=== PATIENT | female | born 1950 | race Caucasian/White ===

== ENCOUNTER → 2016-11-16 | Outpatient (CLI) | payer OTHER ==
--- NOTE | 2016-11-16 20:02 | CONS ---
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 HISTORY OF PRESENT ILLNESS/SLEEP-WAKE EVALUATION: SLEEP SCHEDULE: Patient's usual sleep schedule is from 10:00 p.m. to 5:00 a.m. on weekdays and from around 11:00 p.m. to 6:00 a.m. on weekends. FALLING ASLEEP: No problem with falling asleep. No TV in bedroom. DURING SLEEP: She usually sleeps on the side or different positions by herself. No information about snoring. She wakes up from sleep once with nocturia. DURING THE DAY/WAKE STATE: She does not complain of any tiredness or sleepiness during the day. [place] Sleepiness Scale is 3, but she may take one nap during the day at 11:00 a.m. No history of hypnagogic hallucinations, sleep paralysis or cataplexy. Patient by herself denied snoring. PAST MEDICAL HISTORY: Hypertension, coronary artery disease, hypothyroidism, diabetes mellitus, allergies, history of chronic obstructive pulmonary disease. PAST SURGICAL HISTORY: Stent insertion to coronary artery, polypectomy from colon in 2015. MEDICATIONS: Singulair, metformin, levothyroxine, chlorzoxazone, clonidine, losartan, clopidogrel, atorvastatin, [place]-3 supplement, metoprolol, hydrochlorothiazide, glimepiride. SOCIAL HISTORY: Positive for social smoking several cigarettes a week. Alcohol consumption none at the present time. REVIEW OF SYSTEMS: Awakenings from sleep with nocturia once for many years. No fevers. No double vision. No recent chest pain. No shortness of breath. No abdominal pain. No bleeding episodes. No blood in urine. No seizure episodes. FAMILY HISTORY: Hypertension, heart problems, hyperlipidemia, arthritis, bronchitis, acid reflux, diabetes, thyroid problems. PHYSICAL EXAMINATION: GENERAL: During physical exam, a 66-year-old lady without distress. VITAL SIGNS: BP 168/96, HR 85, RR 18, height 60 inches. Weight 192.8. BMI 37.4. Neck 14-3/4 inches in circumference. Temperature 97.4. Oxygen saturation at room air 95%. HEENT: [place], EOMI. Evaluation of oropharynx showed extremely low position of soft palate, restriction of nasal breathing bilaterally. NECK: Supple. No JVD. Thyroid is not palpable. LUNGS: Clear to percussion and to auscultation. Good air exchange. No wheezing or rhonchi. HEART: S1, S2 regular. No murmurs, gallops or rubs. ABDOMEN: Obese. Soft and nontender. Bowel sounds are present. No organomegaly appreciated. EXTREMITIES: No clubbing or cyanosis. ADMINISTRATIVE CLERK: Awake, alert, and oriented x3. Cranial nerves 2 to 7 intact. There is no fasciculation or atrophy noted. No focal deficits observed. IMPRESSION: 1. Extremely low position of soft palate, restriction of nasal breathing, awakenings from sleep with nocturia, obesity, possible obstructive sleep apnea-hypopnea syndrome. 2. Obesity, body mass index of 37.4. 3. Hypertension. 4. Coronary artery disease, status post stent insertion. 5. Hypothyroidism. 6. Hyperlipidemia. 7. Allergies. 8. Status post polypectomy from colon in 2014. 9. History of chronic obstructive pulmonary disease. PLAN: 1. Polysomnography for evaluation of patient's breathing during sleep. 2. CPAP/BiPAP titration if sleep study confirms obstructive sleep apnea-hypopnea syndrome. 3. Preferable position during sleep on the side. 4. No driving if patient feels any sleepiness. Patient is aware of civil and criminal liability for unsafe driving. 5. I will see patient for follow-up visit to explain results of the testing and following plan. Thank you very much for referring this patient for consultation. Sincerely, Hubert Jaime MD, PhD, FAASM. Diplomat of [place] [employer], Sleep Medicine Board by [place] [employer] [place] [employer] Auditor Appraiser of [facility] [place]
== END | disposition home or self-care (01) ==
LOC: SLEEP 16:41
PROVIDERS: ATTEND Internal Medicine
DX: G47.33 Obstructive sleep apnea (adult) (pediatric) (principal); E66.9 Obesity, unspecified; Z68.37 Body mass index [BMI] 37.0-37.9, adult; I10 Essential (primary) hypertension; I25.10 Atherosclerotic heart disease of native coronary artery without angina pectoris; E03.9 Hypothyroidism, unspecified; E78.5 Hyperlipidemia, unspecified; Z91.09 Other allergy status, other than to drugs and biological substances; Z98.890 Other specified postprocedural states; J44.9 Chronic obstructive pulmonary disease, unspecified
CPT/HCPCS: 99211

== ENCOUNTER → 2016-12-27 | Outpatient (CLI) | payer OTHER ==
--- NOTE | 2016-12-27 14:21 | PN ---
DATE OF CONSULTATION: 12/27/2016 A 66-year-old lady who has been followed in the Sleep Center to discuss results of diagnostic sleep study, which was done as a polysomnogram. I discussed results of diagnostic sleep study with the patient in detail. Total apnea-hypopnea index during the test is 3.1, which is in normal range. Apnea-hypopnea in REM sleep increased to 24.4. Patient usually sleeps short amount of hours at night and then take additional 1 or 2 hours of sleep during the day. With this regimen, she referred no sleepiness. [place] Sleepiness Scale today is 4. 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 Patient referred that she does not feel any sleepiness during the day. MEDICATIONS: Singulair, metformin, levothyroxine, chlorzoxazone, clonidine, losartan, clopidogrel, atorvastatin, metoprolol, hydrochlorothiazide, glimepiride. The patient did not take her medications today. During physical exam, patient in no distress. BP 173/85, HR 84, RR 16. Weight 197.0 to 197.7, oxygen saturation at room air 98%. Oropharynx low position of soft palate. ABDOMEN: Obese. Neck: Supple. No JVD. Thyroid is not palpable. LUNGS: Clear to percussion and to auscultation. Good air exchange. No wheezing or rhonchi. HEART: S1, S2 regular. No murmurs, gallops, or rubs. EXTREMITIES: No clubbing or cyanosis. EQUAL OPPORTUNITY OFFICER: Awake, alert, and oriented x3. Cranial nerves 2 to 7 intact. There is no fasciculation or atrophy noted. No focal deficits observed. IMPRESSION: 1. Snoring has been documented during the sleep study. 2. Total apnea-hypopnea index 3.1, which is in normal range following Medicare guidelines. 3. Patient does not refer any excessive daytime sleepiness during the day. [place] Sleepiness Scale is 4. 4. Hypertension. 5. Coronary artery disease. 6. Hypothyroidism. 7. Hyperlipidemia. 8. Allergies. 9. Status post polyps removed from the colon. 10. History of chronic obstructive pulmonary disease. PLAN: 1. Sleep hygiene with regular time in bed for at least 8 hours. 2. Losing weight. 3. Preferable position during sleep on the side. 4. No driving if feeling any sleepiness. 5. Patient is aware about civil and criminal liability for unsafe driving after promised to follow recommendations. 6. Losing weight. 7. Followup visit in 6 months. Thank you very much for allowing me to participate in the management of your patient. Sincerely, Hubert Jaime MD, PhD, FAASM. Diplomat of [place] [employer], Sleep Medicine Board by [place] [employer] [place] [employer] Garage Mechanic of [facility] [place]
== END | disposition home or self-care (01) ==
LOC: SLEEP 09:48
PROVIDERS: ATTEND Internal Medicine
DX: R06.83 Snoring (principal); I10 Essential (primary) hypertension; J44.9 Chronic obstructive pulmonary disease, unspecified; E03.9 Hypothyroidism, unspecified; E78.5 Hyperlipidemia, unspecified; I25.10 Atherosclerotic heart disease of native coronary artery without angina pectoris; Z79.899 Other long term (current) drug therapy

== ENCOUNTER → 2017-01-26 | Outpatient (CLI) | payer OTHER ==
--- NOTE | 2017-01-26 14:39 | US ---
EXAMINATION TYPE: US carotid duplex BILAT DATE OF EXAM: 01/26/2017 1:55 PM COMPARISON: NONE CLINICAL HISTORY: 66-year-old female I25.10 Atherosclerotic heart disease. HTN TECHNIQUE: Carotid duplex ultrasound examination. Diverticular criteria was utilized. FINDINGS: There is moderate atherosclerotic change seen at the left greater than right carotid bifurcations and also within the left common carotid artery. EXAM MEASUREMENTS: RIGHT: Peak Systolic Velocity (PSV) cm/sec ----- Right CCA: 87.5 ----- Right ICA: 121.1 ----- Right ECA: 217.5 ICA/CCA ratio: 1.4 RIGHT: End Diastole cm/sec ----- Right CCA: 30.3 ----- Right ICA: 44.8 ----- Right ECA: 20.0 LEFT: Peak Systolic Velocity (PSV) cm/sec ----- Left CCA: 111.7 ----- Left ICA: 117.3 ----- Left ECA: 101.6 ICA/CCA ratio: 1.1 LEFT: End Diastole cm/sec ----- Left CCA: 41.3 ----- Left ICA: 36.5 ----- Left ECA: 0.0 VERTEBRALS (direction of flow): Right Vertebral: Antegrade Left Vertebral: Antegrade CASKET ASSEMBLER NOTES: Bilateral thickened wall. Elevated right ECA. No significant stenosis seen. Evette que seen in bilateral bulbs and in left CCA. IMPRESSION: Moderate atherosclerotic change, left greater than right. No hemodynamically significant stenosis xavier reciated in either internal carotid artery. Criteria for Assigning % of Stenosis / Diameter reduction (Estimation based on the indirect measurements of the internal carotid artery velocities (ICA PSV). 1. Normal (no stenosis)=ICA PSV < 125 cm/s: ratio < 2.0: ICA EDV<40 cm/s. 2. Less than 50% stenosis=ICA PSV < 125 cm/s: ratio < 2.0: ICA EDV<40 cm/s. 3. 50 to 69% stenosis=ICA PSV of 125 to 230 cm/s: ration 2.0 ? 4.0: ICA EDV 40-100 cm/s. 4. Greater than 70% stenosis to near occlusion= ICA PSV > 230 cm/s: ratio > 4.0: ICA EDV > 100 cm/s. 5. Near occlusion= ICA PSV velocities may be low or undetectable: variable ratio and ICA EDV. 6. Total occlusion=unable to detect flow.
== END | disposition home or self-care (01) ==
LOC: RADUSWWP 13:14 → MERGE 02-01 18:00
PROVIDERS: ATTEND Family Medicine
DX: I25.10 Atherosclerotic heart disease of native coronary artery without angina pectoris (principal)
CPT/HCPCS: 93880

== ENCOUNTER → 2017-06-28 | Outpatient (CLI) | payer OTHER ==
--- NOTE | 2017-06-28 11:42 | PN ---
PROGRESS NOTE DATE OF SERVICE: 06/28/2017 A 66-year-old lady has been followed in the Sleep Center to discuss results of polysomnogram. I discussed results of polysomnogram with the patient in details. Sleep study did not show significant abnormalities of respiration following today's criteria. Apnea-hypopnea index 3.1, lowest oxygen level 87.2, and oxygen was below normal only for 0.3 minutes. Apnea-hypopnea index in REM sleep increased to 24, but it is not considered to be criteria by today's recommendations. No significant periodic limb movements have been documented. Snoring medium to loud has been documented during the sleep study. During the summer, patient sleeps from midnight until 8 am. 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 She has up at 5 am and subsequently it may not be enough for her. In that case, she may take additional nap during the day, but she does not feel any sleepiness. Her [place] Sleepiness Scale is 4. MEDICATIONS: Singulair, metformin, levothyroxine, clonidine, losartan, clopidogrel, atorvastatin, metoprolol, hydrochlorothiazide, glimepiride. PHYSICAL EXAM: A 66-year-old lady without distress. BP 142/70, HR 78, RR 16, height 5, 0, weight 170, BMI 33.2. Patient lost about 22 pounds since the time when we did the sleep study. Temperature 97.5, oxygen saturation on room air 96%. OROPHARYNX: Low position of soft palate. HEART: Short systolic murmur on aorta. ABDOMEN: Slightly obese. Neck Supple, no JVD. Thyroid is not palpable. LUNGS Clear to percussion and to auscultation. Good air exchange. No wheezing or rhonchi. EXTREMITIES No clubbing or cyanosis. PLANT OPERATIONS WORKER Awake, alert, and oriented X3. Cranial nerves 2 to 7 intact. There is no fasciculation or atrophy. noted. No focal deficits observed. IMPRESSION: 1. Snoring during the sleep test. 2. No significant respiratory abnormalities during the sleep study. 3. Patient lost about 22 pounds since previous sleep study, which showed positively affecting her breathing during the sleep and may decrease her snoring. 4. Mild obesity. 5. Hypertension. 6. Coronary artery disease, status post stent insertion. 7. Hypothyroidism. 8. Hyperlipidemia. 9. Allergies. 10.Status post polypectomy from colon in 2014. 11.History of chronic obstructive pulmonary disease. PLAN: 1. Continue losing weight. 2. Sleep hygiene with regular time in bed for 7-1/2 to 8 hours. 3. No driving if feeling sleepiness. 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 Promise to follow recommendations. 4. The patient should try to go to bed early at the school time. To do that, she may consider to use melatonin at 7 pm which may move her sleep cycle to the early time. As much as possible bright light exposure in the morning. She could use light machine in the morning during the breakfast. 5. Followup visit in 6 months. Thank you very much for allowing me to participate in the management of your patient. Sincerely, Hubert Jaime MD, PhD, FAASM Diplomat of [place] [employer] Specialties [place] Board of Internal Medicine University Relations Recruiter of [facility] [place] MMODL / PAMELAN: [id number] /
== END ==
LOC: SLEEP 09:55
PROVIDERS: ATTEND Internal Medicine
DX: R06.83 Snoring (principal); E66.9 Obesity, unspecified; I10 Essential (primary) hypertension; I25.10 Atherosclerotic heart disease of native coronary artery without angina pectoris; E78.5 Hyperlipidemia, unspecified; E03.9 Hypothyroidism, unspecified; J44.9 Chronic obstructive pulmonary disease, unspecified; Z79.899 Other long term (current) drug therapy; Z79.84 Long term (current) use of oral hypoglycemic drugs

== ENCOUNTER → 2020-12-21 | Outpatient (CLI) | payer MEDICARE, OTHER ==
--- NOTE | 2020-12-27 10:45 | MM ---
Reason for exam: screening (asymptomatic). Last mammogram was performed 10 years and 9 months ago. History: Patient is postmenopausal and history of other cancer. Physical Findings: A clinical breast exam by your physician is recommended on an annual basis and results should be correlated with mammographic findings. MG 3D Screening Mammo W/Cad Bilateral CC and MLO view(s) were taken. Prior study comparison: March 11, 2010, bilateral digital screening mammogram. There are scattered fibroglandular densities. There is chronic nodularity bilaterally. No significant changes when compared with prior studies. ASSESSMENT: Benign, BI-RAD 2 RECOMMENDATION: Routine screening mammogram of both breasts in 1 year.
== END ==
LOC: RADMAMWWP 10:51
PROVIDERS: ATTEND Family Medicine
DX: Z12.31 Encounter for screening mammogram for malignant neoplasm of breast (principal); Z78.0 Asymptomatic menopausal state
CPT/HCPCS: 77063; 77067

== ENCOUNTER → 2022-12-30 | Outpatient (CLI) | payer MEDICARE, OTHER ==
[2022-12-30 16:32] LABS: Basophils # (A) 0.06 X 10*3/uL (0.00-0.10); Basophils % (A) 0.5 %; Eosinophils # (A) 0.17 X 10*3/uL (0.04-0.35); Eosinophils % (A) 1.4 %; HCT 37.3 % (37.2-46.3); HGB 11.6 g/dL (12.0-15.0); Immature Grans, Automated 0.3 %; Lymphocytes # (A) 2.27 X 10*3/uL (0.90-5.00); Lymphocytes % (A) 19.2 %; MCH 27.5 pg (27.0-32.0); MCHC 31.1 g/dL (32.0-37.0); MCV 88.4 fL (80.0-97.0); Monocytes # (A) 0.58 X 10*3/uL (0.20-1.00); Monocytes % (A) 4.9 %; NRBC Per 100 WBC 0 /100 WBCS (0.0-0.0); Neutrophils # (A) 8.72 X 10*3/uL (1.80-7.70); Neutrophils % (A) 73.7 %; Platelet Count 262 X 10*3/uL (140-440); RBC 4.22 X 10*6/uL (4.10-5.20); RDW 13.4 % (11.5-14.5); WBC 11.84 X 10*3/uL (4.50-10.00)
[2022-12-30 17:41] LABS: ALT 22 U/L (8-44); AST 20 U/L (13-35); African American GFR (CKD) 71.8 (60.0-200.0); Albumin 4.4 g/dL (3.8-4.9); Albumin/Globulin Ratio 1.44 (1.60-3.17); Alkaline Phosphatase 50 U/L (41-126); BUN/Creat Ratio 23.23 Ratio (12.00-20.00); Blood Urea Nitrogen 21.7 mg/dL (9.0-27.0); Calcium 9.4 mg/dL (8.7-10.3); Carbon Dioxide 25.1 mmol/L (20.0-27.5); Chloride 102 mmol/L (96-109); Chol/HDL Ratio 3.32 Ratio; Globulin 3.1 g/dL (1.6-3.3); Glucose 125 mg/dL (70-110); LDL Cholesterol,Calculated 45.9 mg/dL (0.0-131.0); Non-African American GFR(CKD) 61.9 (60.0-200.0); Potassium 4.3 mmol/L (3.5-5.5); Sodium 140 mmol/L (135-145); Total Protein 7.5 g/dL (6.2-8.2)
== END | disposition home or self-care (01) ==
LOC: LABWHC1 11:35
PROVIDERS: ATTEND Internal Medicine Interventional Cardiology
DX: E78.2 Mixed hyperlipidemia (principal)
CPT/HCPCS: 36415; 80053; 80061; 85025

== ENCOUNTER → 2022-12-30 | Outpatient (CLI) | payer MEDICARE, OTHER | END | disposition home or self-care (01) | LOC: LABPAT 11:32 | PROVIDERS: ATTEND Internal Medicine Interventional Cardiology | DX: Z53.9 Procedure and treatment not carried out, unspecified reason (principal) ==

== ENCOUNTER 2023-01-04 10:20 | Day surgery (SDC) | payer MEDICARE, OTHER ==
[~2023-01-04 10:20] MED LIST: ALPRAZolam 0.25 MG TAB PO PRN; ALPRAZolam 0.5 MG TAB PO PRN; ASPIRIN 325 MG TAB PO ONE; NITROGLYCERIN SL TABS 0.4 MG TAB SUBLINGUAL PRN
[2023-01-04] MEDS: SODIUM CHLORIDE 0.9% 1,000 ML in EMPTY BAG 1 BAG IV SCH ×2 (10:50→17:48)
[2023-01-04 11:03] LABS: Glucose,Whole Blood 152 mg/dL (70-110)
[2023-01-04 11:09] LABS: Basophils % (A) 0 %; Eosinophils # (A) 0.1 k/uL (0-0.7); Eosinophils % (A) 2 %; HCT 32.3 % (34.0-46.0); HGB 10.7 gm/dL (11.4-16.0); Lymphocytes # (A) 1.7 k/uL (1.0-4.8); Lymphocytes % (A) 20 %; MCH 28.7 pg (25.0-35.0); MCHC 33.1 g/dL (31.0-37.0); Mean Platelet Volume 7.1; Monocytes # (A) 0.4 k/uL (0-1.0); Monocytes % (A) 4 %; Neutrophils # (A) 6.3 k/uL (1.3-7.7); Neutrophils % (A) 73 %; Platelet Count 215 k/uL (150-450); RBC 3.73 m/uL (3.80-5.40); RDW 13.7 % (11.5-15.5); WBC 8.7 k/uL (3.8-10.6)
[2023-01-04 11:21] LABS: MCV 86.7 fL (80.0-100.0)
[2023-01-04] MEDS ORDERED: fentaNYL (PF) 50 MCG/ML 2 ML AMP ONE (11:51)
[2023-01-04] MEDS ORDERED: fentaNYL (PF) 50 MCG/ML 2 ML AMP IV ONE (12:25)
[2023-01-04] MEDS ORDERED: HEPARIN SODIUM 1,000 UN/ML (10ML VL) ONE (12:29)
[2023-01-04] MEDS ORDERED: LIDOCAINE 1% INJ 10MG/ML (5 ML VIAL-PF) SQ ONE (12:29)
[2023-01-04] MEDS ORDERED: VERAPAMIL 2.5 MG/ML 2 ML AMP INTRAARTER ONE (12:31)
[2023-01-04] MEDS ORDERED: HEPARIN SODIUM 1,000 UN/ML (10ML VL) IV ONE ×3 (12:32→12:51)
[2023-01-04] MEDS ORDERED: IOPAMIDOL-370 125ML BTL INJ ONE (13:14)
[2023-01-04] MEDS ORDERED: NITROGLYCERIN SL TABS 0.4 MG TAB SUBLINGUAL PRN ×2 (13:18→13:19)
[2023-01-04] MEDS ORDERED: ATROPINE SULFATE 0.1 MG/ML 10ML SYRINGE IV PRN (13:18)
[2023-01-04] MEDS ORDERED: ZOLPIDEM 5 MG TAB PO PRN (13:18)
[2023-01-04] MEDS ORDERED: RX INFO: IV CONTRAST WAS GIVEN 1 EACH MISC MISCELLANE PRN (13:18)
[2023-01-04] MEDS ORDERED: MAG HYDROX/AL HYDROX/SIMETH 30 ML CUP PO PRN (13:18)
--- NOTE | 2023-01-04 13:27 | P.CARDCATH ---
Date of Procedure: 01/04/23 Description of Procedure: Cardiac Catheterization: The patient is a 72-year-old female with a history of hypertension, hyperlipidemia, diabetes mellitus and prior PCI of her RCA was has been complaining of progressive dyspnea and had an abnormal MPI. Recommendations were made regarding cardiac catheterization, the risks and the complications were discussed with the patient who is in full understanding and agreement. Procedure Description: Patient was brought to salvage laborer in fasting semi-sedated state after receiving Fentanyl and Benadryl achieiving moderate conscious sedated state. Using Xylocaine Anesthesia and Seldinger technique, a 6-Swedish sheath was introduced in the right radial artery . Subsequently, selective coronary angiography was performed using a 5-Swedish 3.5 bend Coretta catheter. Multiple views of the coronary artery including hemiaxial views were obtained. The 5-Swedish pigtail catheter was used to cross the aortic valve and LVEDP was calculated. PCI: After removing the catheter a 6-Swedish EBU 3.75 guiding catheter was introduced and the system and after cannulating the left main a 0.014 BMW J-wire was positioned in the distal LAD subsequently an IVUS [place] Eye catheter was introduced and imaging were obtained, after removing the catheter 3.0 x 12 mm shockwave balloon was introduced and 3 treatment were done. After removing the balloon 3.0 x 23 mm Xience maine point was advanced and deployed at 16 gary, after removing the balloon repeat intravascular ultrasound was performed. And after removing the wire images were obtained and revealed stable successful stenting. Following that, catheter and sheath were removed. Hemostasis was obtained with deployment of TR band . There was no immediate complication. Patient was returned to room in stable condition. Of note, the patient received a total of 7500 units of intravenous heparin as well as intra-arterial verapamil. She was continued on clopidogrel. She had chest discomfort and EKG changes with the inflations. Her ACT was monitored. Findings: Fluoroscopy: Severe calcifications of all of her arteries was noted Left main: This is a large-size vessel, bifurcating into LAD and left circumflex, left main has no high-grade stenosis LAD: This is a large-size vessel, reaching to the apex with a wraparound the apex segment after the takeoff of the first diagonal branch there is an eccentric 95% stenosis, the rest of the vessel has no high-grade stenosis Left circumflex: This is a large nondominant vessel giving rise to a large obtuse marginal branch, the obtuse marginal branch has 10-20% plaque with no high-grade stenosis. RCA: This is a large dominant vessel, bifurcating into PDA and PLV, the stented proximal and mid RCA is patent with mild in-stent restenosis of 20% with no high-grade stenosis Left Ventriculogram: Not performed Hemodynamics: There was no gradient across the aortic valve , LVEDP was 16-20 mmHg Conclusion: 1. Severe diffuse calcification 2. Critical stenosis in the proximal LAD 3. Patent stents of the RCA with mild in-stent restenosis 4. Mild disease in the left circumflex 5. Successful stenting of the proximal LAD with reduction of stenosis from 95% to less than 5% with intravascular ultrasound imaging. Recommendations: The patient will continue on aspirin and clopidogrel for 6 months without any interruption in addition to aggressive coronary risks modifications. The findings and the recommendations were discussed with the patient and the family and they were in full understanding and agreement. Duration of sedation is 44 minutes.
[2023-01-04] MEDS ORDERED: SODIUM CHLORIDE 0.9% 1,000 ML in EMPTY BAG 1 BAG IV SCH (13:30)
[2023-01-04 16:42] LABS: Glucose,Whole Blood 145 mg/dL (70-110)
[2023-01-04] MEDS: PANTOPRAZOLE 40 MG TABLET PO SCH (17:47)
[2023-01-04] MEDS: GLIMEPIRIDE 4 MG TAB PO SCH (17:48)
[2023-01-04] MEDS ORDERED: MONTELUKAST 10 MG TAB PO SCH (21:00)
[2023-01-04] MEDS ORDERED: ATORVASTATIN 40 MG TAB PO SCH (21:00)
[2023-01-04] MEDS: cloNIDine HCL 0.1 MG TAB PO SCH (21:12)
[2023-01-04] MEDS: METOPROLOL TARTRATE 50 MG TAB PO SCH (21:13)
[2023-01-04] MEDS: CYCLOBENZAPRINE 5 MG TAB PO SCH (21:13)
[2023-01-04 21:57] LABS: Glucose,Whole Blood 148 mg/dL (70-110)
[2023-01-05 06:26] LABS: Glucose,Whole Blood 154 mg/dL (70-110)
[2023-01-05] MEDS ORDERED: LEVOTHYROXINE 137 MCG TAB PO SCH (06:30)
[2023-01-05] MEDS: SODIUM CHLORIDE 0.9% 1,000 ML in EMPTY BAG 1 BAG IV SCH (06:31)
[2023-01-05] MEDS: GLIMEPIRIDE 4 MG TAB PO SCH (06:33)
[2023-01-05] MEDS: PANTOPRAZOLE 40 MG TABLET PO SCH (06:33)
--- NOTE | 2023-01-05 07:13 | P.PN ---
Subjective Progress Note Date: 01/05/23 PROGRESS NOTE The patient is a 72-year-old female with known history of hypertension, hyperlipidemia, diabetes mellitus who has been complaining of chest discomfort and had an abnormal MPI, underwent cardiac catheterization and was found to have severe obstructive disease involving the calcified LAD. She underwent stenting of that vessel. She is doing well this morning, ambulating without difficulty. She continues to be in sinus mechanism. Medications: Aspirin, Plavix 75 mg daily, Lipitor 40 mg daily, Protonix 40 mg daily, Singulair 10 mg daily, losartan 100 mg daily, Synthroid, glyburide, clonidine, metoprolol 50 mg twice a day, Zetia 10 mg daily, citalopram,Trulicity PHYSICAL EXAMINATION: Blood [id number]/70 heart rate 78 LUNGS: [Clear to auscultation] HEART: [Regular rate and rhythm, S1, S2. No S3. systolic ejection murmur] ABDOMEN: [Soft, nontender, no organomegaly] EXTREMETIES: [No edema, Right radial pulse intact ] LAB: EKG: Sinus mechanism with no acute ST segment changes. IMPRESSION: 1. Status post stenting of the LAD 2. Patent stent in the RCA 3. Hypertension 4. Diabetes PLAN: 1. Continue present therapy 2. Discharged home today 3. Follow-up as an outpatient Objective - Vital Signs Vital signs: Vital Signs Temp 97.8 F 01/05/23 02:05 Pulse 78 01/05/23 02:05 Resp 16 01/05/23 02:05 BP 135/77 01/05/23 02:05 Pulse Ox 98 01/05/23 02:05 FiO2 Intake & Output 01/04/23 01/05/23 01/05/23 18:59 06:59 18:59 Intake Total 100 Balance 100 Weight 79.9 kg Intake: IV 100 Other: # Voids 2 - Labs CBC & Chem 7: 01/04/23 10:49 Labs: Abnormal Lab Results - Last 24 Hours (Table) 01/04/23 01/04/23 01/04/23 Range/Units 10:49 10:55 16:41 RBC 3.73 L (3.80-5.40) m/uL Hgb 10.7 L (11.4-16.0) gm/dL Hct 32.3 L (34.0-46.0) % POC Glucose (mg/dL) 152 H 145 H (70-110) mg/dL 01/04/23 01/05/23 Range/Units 21:55 06:24 RBC (3.80-5.40) m/uL Hgb (11.4-16.0) gm/dL Hct (34.0-46.0) % POC Glucose (mg/dL) 148 H 154 H (70-110) mg/dL
[2023-01-05 07:20] VITALS: BP 125/73; PULSE 72; RESP 18; TEMP 97.5
[2023-01-05 08:16] LABS: African American GFR (CKD) 86 (>60 ml/min/1.73 sqM); Anion Gap 7 mmol/L; Blood Urea Nitrogen 17 mg/dL (7-17); Calcium 8.6 mg/dL (8.4-10.2); Carbon Dioxide 27 mmol/L (22-30); Chloride 103 mmol/L (98-107); Glucose 165 mg/dL (74-99); Non-African American GFR(CKD) 74 (>60 ml/min/1.73 sqM); Potassium 4.2 mmol/L (3.5-5.1); Sodium 137 mmol/L (137-145)
[2023-01-05] MEDS: CYCLOBENZAPRINE 5 MG TAB PO SCH (08:48)
[2023-01-05] MEDS: METOPROLOL TARTRATE 50 MG TAB PO SCH (08:48)
[2023-01-05] MEDS ORDERED: ASPIRIN 81 MG PO SCH (09:00)
[2023-01-05] MEDS ORDERED: LOSARTAN 50 MG TAB PO SCH (09:00)
[2023-01-05] MEDS ORDERED: EZETIMIBE 10 MG TAB PO SCH (09:00)
[2023-01-05] MEDS ORDERED: LACTOBACILLUS ACIDOPH & BULGAR 1 EACH PACKET PO SCH (09:00)
[2023-01-05] MEDS ORDERED: CITALOPRAM HYDROBROMIDE 10 MG TAB PO SCH (09:00)
[2023-01-05] MEDS ORDERED: CLOPIDOGREL 75 MG TAB PO SCH (09:00)
[2023-01-05] MEDS: cloNIDine HCL 0.1 MG TAB PO SCH (09:42)
[2023-01-08] MEDS ORDERED: NON FORMULARY DRUG (Dulaglutide [Trulicity] 1.5 MG/0.5 ML Each) SQ SCH (09:00)
[2023-01-11] MEDS ORDERED: CYANOCOBALAMIN 1,000 MCG/ML 1 ML VIAL SQ SCH (09:00)
== END 2023-01-05 10:33 | disposition home or self-care (01) ==
LOC: CATHCVL 10:20 → 6NMEDSUR 13:15 → CATHCVL 01-05 10:33
PROVIDERS: ATTEND Internal Medicine Interventional Cardiology
DX: I25.10 Atherosclerotic heart disease of native coronary artery without angina pectoris (principal); E11.9 Type 2 diabetes mellitus without complications; I10 Essential (primary) hypertension; Z79.82 Long term (current) use of aspirin; Z79.84 Long term (current) use of oral hypoglycemic drugs; Z79.85 Long-term (current) use of injectable non-insulin antidiabetic drugs; Z79.899 Other long term (current) drug therapy; Z95.5 Presence of coronary angioplasty implant and graft
CPT/HCPCS: 94760; 92978; 93458; 0715T; 80048; 85025; C9600; C1769 ×3; C1887; C1894; C1753; C1874; C1761; J2001; J3010; J1644; Q9967

== ENCOUNTER 2023-12-13 05:33 | Day surgery (SDC) | payer MEDICARE, OTHER ==
[2023-12-13] MEDS ORDERED: LACTATED RINGERS 1,000 ML IV SCH (05:56)
[2023-12-13] MEDS ORDERED: ALPRAZolam 0.25 MG TAB PO PRN (05:56)
[2023-12-13] MEDS ORDERED: NITROGLYCERIN SL TABS 0.4 MG TAB SUBLINGUAL PRN (05:56)
[2023-12-13] MEDS ORDERED: ALPRAZolam 0.5 MG TAB PO PRN (05:56)
[2023-12-13] MEDS ORDERED: ASPIRIN 325 MG TAB PO STA (05:56)
[2023-12-13] MEDS ORDERED: DEXAMETHASONE SOD PHOSPHATE 4 MG/ML 1 ML VIAL IV ONE (05:56)
[2023-12-13] MEDS ORDERED: ONDANSETRON 4 MG/2 ML VIAL IVP ONE (05:56)
[2023-12-13] MEDS ORDERED: SODIUM CHLORIDE 0.9% 1,000 ML in EMPTY BAG 1 BAG IV SCH (05:56)
[2023-12-13] MEDS: SODIUM CHLORIDE 0.9% 1,000 ML IV ONE (06:14)
[2023-12-13 06:36] LABS: Basophils # (A) 0.1 k/uL (0-0.2); Basophils % (A) 1 %; Eosinophils # (A) 0.2 k/uL (0-0.7); Eosinophils % (A) 2 %; HCT 31.2 % (34.0-46.0); HGB 9.8 gm/dL (11.4-16.0); Hypochromasia Slight; Lymphocytes # (A) 1.7 k/uL (1.0-4.8); Lymphocytes % (A) 21 %; MCH 25.6 pg (25.0-35.0); MCHC 31.3 g/dL (31.0-37.0); MCV 81.9 fL (80.0-100.0); Mean Platelet Volume 7.3; Monocytes # (A) 0.4 k/uL (0-1.0); Monocytes % (A) 5 %; Neutrophils # (A) 5.8 k/uL (1.3-7.7); Neutrophils % (A) 70 %; Platelet Count 250 k/uL (150-450); RBC 3.81 m/uL (3.80-5.40); WBC 8.3 k/uL (3.8-10.6)
[2023-12-13 06:52] LABS: African American GFR (CKD) 67 (>60 ml/min/1.73 sqM); Anion Gap 8 mmol/L; Blood Urea Nitrogen 19 mg/dL (7-17); Calcium 8.7 mg/dL (8.4-10.2); Carbon Dioxide 24 mmol/L (22-30); Chloride 105 mmol/L (98-107); Glucose 191 mg/dL (74-99); Non-African American GFR(CKD) 58 (>60 ml/min/1.73 sqM); Sodium 137 mmol/L (137-145)
[2023-12-13] MEDS ORDERED: HYDROmorphone 0.5 MG/0.5 ML SYRINGE IVP PRN (07:00)
[2023-12-13 07:19] VITALS: RESP 16; TEMP 97.7
[2023-12-13] MEDS ORDERED: LIDOCAINE 1% INJ 10MG/ML (20 ML MDV) ONE (07:28)
[2023-12-13] MEDS ORDERED: VERAPAMIL 2.5 MG/ML 2 ML AMP ONE (07:28)
[2023-12-13] MEDS ORDERED: HEPARIN SODIUM 1,000 UN/ML (10ML VL) ONE (07:28)
[2023-12-13] MEDS ORDERED: fentaNYL (PF) 50 MCG/ML 2 ML AMP ONE (07:29)
[2023-12-13] MEDS: fentaNYL (PF) 50 MCG/1 ML VIAL IVP ONE (07:38)
[2023-12-13] MEDS: LIDOCAINE 1% INJ 10MG/ML (20 ML MDV) SQ ONE (07:40)
[2023-12-13] MEDS: VERAPAMIL SYRINGE (5 MG/10 ML) INTRAARTER ONE (07:44)
[2023-12-13] MEDS: HEPARIN SODIUM 1,000 UN/ML (10ML VL) IV ONE (07:46)
[2023-12-13] MEDS: IOPAMIDOL-370 100ML BTL INJ ONE (07:54)
[2023-12-13] MEDS ORDERED: RX INFO: IV CONTRAST WAS GIVEN 1 EACH MISC MISCELLANE PRN (08:18)
--- NOTE | 2023-12-13 08:25 | P.CARDCATH ---
Date of Procedure: 12/13/23 Description of Procedure: Cardiac Catheterization: The patient is a 73-year-old female with a known history of hypertension, hyperlipidemia, diabetes mellitus and multivessel stenting who presented with symptoms of dyspnea and had an abnormal MPI. Recommendations were made regarding cardiac catheterization, the risks and the complications were discussed with the patient who is in full understanding and agreement. Procedure Description: Patient was brought to dairy lab technician in fasting semi-sedated state after receiving Fentanyl and Benadryl achieiving moderate conscious sedated state. Using Xylocaine Anesthesia and modified Seldinger technique, a 6-Swedish sheath was introduced in the right radial artery . Subsequently, selective coronary angiography was performed using a 5-Swedish 3.5 bend Coretta catheter. Multiple views of the coronary artery including hemiaxial views were obtained. The 5 [place] pigtail catheter was used to cross the aortic valve and LVEDP was calculated. Following that, catheter and sheath were removed. Hemostasis was obtained with deployment of vascular band . There was no immediate complication. Patient was returned to room in stable condition. Of note, the patient received a total of 4500 units of intravenous heparin as well as intra-arterial verapamil. Findings: Fluoroscopy: Calcifications of the coronary arteries was noted Left main: This is a large size vessel, bifurcating into LAD and left circumflex, left main has no obstructive disease LAD: This is a large size vessel, reaching to the apex with a wraparound apex segment giving rise to 2 diagonal branch. The stented segment in the proximal LAD is patent. There is no evidence of significant in-stent restenosis. The takeoff of the first diagonal branch has a 60 to 70% stenosis with MANUEL-3 flow into the diagonal branch. Left circumflex: This is a large nondominant vessel giving rise to a large obtuse marginal branch. The obtuse marginal branch has a 20% plaque proximally, the rest of the vessel has no high-grade stenosis. RCA: This is a large dominant vessel, bifurcating distally to PDA and PLV. The stented segment in the ostium, proximal and mid RCA are patent. There is mild in-stent restenosis of 20% in the midsegment without any evidence of high-grade stenosis. The flow into the PDA and the PLV is brisk. Left Ventriculogram: Not performed Hemodynamics: There was no gradient across aortic valve, LVEDP was 16-20 mmHg Conclusion: 1. Calcified coronary arteries 2. Patent LAD stent with evidence of 60 to 70% plaque in the ostium of the diagonal branch with MANUEL-3 flow 3. Patent stents in the RCA with mild in-stent restenosis 4. Right dominance Recommendations: The patient will continue on present medical therapy with the aggressive coronary risks modifications. The findings and the recommendations were discussed with the patient and the family and they were in full understanding and agreement. Duration of sedation is 17 minutes.
[2023-12-13] MEDS ORDERED: SODIUM CHLORIDE 0.9% 1,000 ML IV SCH (08:30)
[2023-12-13] MEDS ORDERED: NON FORMULARY DRUG (Levothyroxine Sodium [Synthroid] 175 MCG Tablet) PO SCH (09:00)
[2023-12-13] MEDS ORDERED: EZETIMIBE 10 MG TAB PO SCH (09:00)
[2023-12-13] MEDS ORDERED: NON FORMULARY DRUG (Clonidine Hcl [Catapres] 0.3 MG Tablet) PO SCH (09:00)
[2023-12-13 11:54] VITALS: PULSE 68
[2023-12-13 13:27] VITALS: BP 138/68
[2023-12-13] MEDS ORDERED: GLIMEPIRIDE 4 MG TAB PO SCH (17:30)
[2023-12-13] MEDS ORDERED: PANTOPRAZOLE 40 MG TABLET PO SCH (17:30)
[2023-12-13] MEDS ORDERED: ASPIRIN 325 MG TAB PO SCH (21:00)
[2023-12-13] MEDS ORDERED: METOPROLOL TARTRATE 50 MG TAB PO SCH (21:00)
[2023-12-13] MEDS ORDERED: ATORVASTATIN 40 MG TAB PO SCH (21:00)
[2023-12-14] MEDS ORDERED: CLOPIDOGREL 75 MG TAB PO SCH (09:00)
[2023-12-14] MEDS ORDERED: LOSARTAN 50 MG TAB PO SCH (09:00)
[2023-12-17] MEDS ORDERED: NON FORMULARY DRUG (Dulaglutide [Trulicity] 1.5 MG/0.5 ML Each) SQ SCH (09:00)
== END 2023-12-13 12:17 | disposition home or self-care (01) ==
LOC: CATHCVL 05:33
PROVIDERS: ATTEND Internal Medicine Interventional Cardiology
DX: I25.10 Atherosclerotic heart disease of native coronary artery without angina pectoris (principal); I10 Essential (primary) hypertension; E78.2 Mixed hyperlipidemia; E11.9 Type 2 diabetes mellitus without complications; I73.9 Peripheral vascular disease, unspecified; F17.210 Nicotine dependence, cigarettes, uncomplicated; I65.22 Occlusion and stenosis of left carotid artery; Z88.8 Allergy status to other drugs, medicaments and biological substances; Z79.82 Long term (current) use of aspirin
CPT/HCPCS: 93458; 80048; 85025; C1769 ×2; C1894; J2001; J1644; Q9967; J3010